=== PATIENT | female | born 1995 ===

== ENCOUNTER 2016-03-11 09:49 | Emergency (ER) | payer BC ==
[2016-03-11 11:30] VITALS: BP 132/79
--- NOTE | 2016-03-11 11:46 | UC ---
Throat Pain/Nasal Natalio HPI - HPI Summary HPI Summary: FEVER X 1 DAY , + CHILLS, COUGH, SORE THROAT, BODY ACHES - History of Current Complaint Chief Complaint: UCRespiratory Stated Complaint: ACHY,THROAT Time Seen by Provider: 03/11/16 11:23 Hx Obtained From: Patient Hx Last Menstrual Period: 01/30/16, TAKES BCP THAT GIVES HER A PERIOD [id number] Onset/Duration: Sudden Onset, Lasting Days - 1, Still Present Severity: Severe Cough: Nonproductive Associated Signs & Symptoms: Positive: Fever. Negative: Sinus Discomfort, Nasal Discharge, Vomiting - Allergies/Home Medications Allergies/Adverse Reactions: Allergies Allergy/AdvReac Type Severity Reaction Status Date / Time No Known Allergies Allergy Verified 03/11/16 11:23 Home Medications: Home Medications Diphenhydramine-Phenylephrine- [Cold & Flu Relief Multi-S 12.5-5-325 mg/10Ml] 1 liq PO PRN 03/11/16 [History] PMH/Surg Hx/FS Hx/Imm Hx Previously Healthy: Yes Endocrine History Of: Denies: Diabetes Cardiovascular History Of: Denies: Hypertension, Pacemaker/ICD GI/ History Of: Denies: Renal Disease - Surgical History Surgical History: None - Family History Known Family History: Negative: Diabetes - Social History Alcohol Use: Rare Substance Use Type: None Smoking Status (MU): Never Smoked Tobacco - Immunization History Most Recent Influenza Vaccination: unsure Review of Systems Constitutional: Fever, Chills, Fatigue Skin: Negative Eyes: Negative ENT: Sore Throat Respiratory: Cough Cardiovascular: Negative Gastrointestinal: Negative All Other Systems Reviewed And Are Negative: Yes Physical Exam Triage Information Reviewed: Yes Appearance: Well-Appearing, No Pain Distress, Well-Nourished Vital Signs: Initial Vital Signs Temp 98.2 F 03/11/16 11:24 Pulse 106 03/11/16 11:24 Resp 20 03/11/16 11:24 BP 132/79 03/11/16 11:24 Pulse Ox 100 03/11/16 11:24 Vital Signs Reviewed: Yes Eye Exam: Normal Eyes: Positive: Conjunctiva Clear ENT: Positive: Normal ENT inspection, Hearing grossly normal, Pharynx normal, TMs normal. Negative: Pharyngeal erythema, Nasal congestion, Nasal drainage Neck: Positive: Supple, Nontender, No Lymphadenopathy Respiratory: Positive: Chest non-tender, Lungs clear, Normal breath sounds Cardiovascular: Positive: Tachycardia Abdominal Exam: Normal Bowel Sounds: Positive: Present Skin Exam: Normal Throat Pain/Nasal Course/Dx - Differential Dx/Diagnosis Provider Diagnoses: INFLUENZA Discharge - Discharge Plan Condition: Stable Disposition: HOME Patient Education Materials: Influenza (ED) Forms: *School Release Referrals: No Primary Care Phys,NOPCP [Primary Care Provider] - If Needed
== END 2016-03-11 11:54 | disposition home or self-care (01) ==
LOC: UCCORT 09:49
DX: J11.1 Influenza due to unidentified influenza virus with other respiratory manifestations (principal)
CPT/HCPCS: 87651; 99211; G0463

== ENCOUNTER 2016-11-15 09:02 | Emergency (ER) | payer BC ==
[2016-11-15] MEDS ORDERED: Ibuprofen TAB* 600 MG PO ONE (09:20)
[2016-11-15 09:39] VITALS: BP 130/91
--- NOTE | 2016-11-15 09:49 | RAD ---
HISTORY: Trauma to right orbit COMPARISONS: None TECHNIQUE: Multiple contiguous axial CT scans were obtained of the face without intravenous contrast, with coronal and sagittal multiplanar reformations. FINDINGS: BONES: There is no displaced fracture or dislocation. The orbital rim is intact. The zygomatic arch is intact. The pterygoid plates are intact. ORBITS: The globes are round. The optic nerves are symmetric. The extraocular musculature is normal. There is no post septal or intraconal inflammatory change. There is no retrobulbar hematoma. PARANASAL SINUSES: The nasal septum is deviated to the left with left-sided spurring. BRAIN AND SOFT TISSUE: Unremarkable. OTHER: None. IMPRESSION: NO FACIAL FRACTURE
--- NOTE | 2016-11-15 09:50 | UC ---
Skin Complaint HPI - HPI Summary HPI Summary: 21 YEAR OLD WITH EYE injury. She was playing feild hockey and a ball was deflected in to eye. unknown speed. no LOC. had laceration immediately. tenderness over the eye. - History of Current Complaint Chief Complaint: UCHeadInjury Stated Complaint: EYE INJURY Hx Obtained From: Patient Hx Last Menstrual Period: 10/14/16 Onset/Duration: Sudden Onset Skin Exposure Onset/Duration: Hours Ago Aggravating Factor(s): Nothing Alleviating Factor(s): Nothing - Allergy/Home Medications Allergies/Adverse Reactions: Allergies Allergy/AdvReac Type Severity Reaction Status Date / Time No Known Allergies Allergy Verified 11/15/16 09:07 Review of Systems Skin: Other - eye lac All Other Systems Reviewed And Are Negative: Yes PMH/Surg Hx/FS Hx/Imm Hx Previously Healthy: Yes - Surgical History Surgical History: None - Family History Known Family History: Negative: Diabetes - Social History Occupation: Student Lives: Dormitory/Roommates Alcohol Use: None Substance Use Type: None Smoking Status (MU): Never Smoked Tobacco - Immunization History Most Recent Influenza Vaccination: unsure Most Recent Tetanus Shot: WITHIN 5 YEARS. Physical Exam Triage Information Reviewed: Yes Appearance: Well-Appearing, Pain Distress - mild Vital Signs: Initial Vital Signs Temp 97.8 F 11/15/16 09:08 Pulse 91 11/15/16 09:08 Resp 16 11/15/16 09:08 BP 130/91 11/15/16 09:08 Pulse Ox 99 11/15/16 09:08 Vital Signs Reviewed: Yes Eye Exam: Normal ENT Exam: Normal Neck exam: Normal Respiratory Exam: Normal Cardiovascular Exam: Normal Musculoskeletal Exam: Normal Neurological Exam: Normal Psychological Exam: Normal Skin: Positive: Other - right eye with irregular laceration 3 CM Course/Dx - Course Course Of Treatment: NEG CT FOR FRACTURE. WITH THE COMPLICATION OF THE LACERATION WILL ADVISE TO GO TO [facility] ED FOR OPTHO EVAL -- NO OPTHO OR PLASTICS [employer] [facility] AT [facility] [place] AND ALSO THIS WAS TRAUMA RELATED . PATIENT AWARE AND AGREEABLE AND GO BY CAR FRIEND WILL DRIVE AND MOM WILL MEET PATIENT AT ED. note for sports asked at this time -- no sports for at least 4-5 days but will defer this to [facility] / follow up physicians and they are aware that note will usurp my note - Diagnoses Provider Diagnoses: COMPLICATED LACERATION RIGHT EYE LID Discharge - Discharge Plan Condition: Good Disposition: TRANS HIGHER LVL OF CARE FAC Patient Education Materials: Laceration (ED) Referrals: No Primary Care Phys,NOPCP [Primary Care Provider] - Additional Instructions: PLEASE GO DIRECTLY TO THE EMERGENCY ROOM AT [facility] EMERGENCY ROOM AT [address] [place] [address] IN [facility]
== END 2016-11-15 09:59 | disposition short-term general hospital (02) ==
LOC: UCCORT 09:02
DX: S01.111A Laceration without foreign body of right eyelid and periocular area, initial encounter (principal); W21.09XA Struck by other hit or thrown ball, initial encounter; Y93.65 Activity, lacrosse and field hockey; Y92.9 Unspecified place or not applicable
CPT/HCPCS: 70480; 99213; A9270-GY; G0463

== ENCOUNTER 2017-05-20 15:10 | Emergency (ER) | payer BC ==
[2017-05-20 15:55] VITALS: BP 121/66
--- NOTE | 2017-05-20 16:12 | UC ---
UC General HPI - HPI Summary HPI Summary: pt c/o fatigue with nausea, a few bouts of vomiting at the onset and some diarrhea a couple of times daily for 4 days. no hx travel, antibiotic use or fever. denies hx IBD. had mono years ago. - History of Current Complaint Hx Obtained From: Patient Hx Last Menstrual Period: 05/13/17 Pain Intensity: 0 Aggravating: diarrhea after meals Alleviating: nothing Associated Signs & Symptoms: Positive: Diarrhea, Nausea, Vomiting. Negative: Abdominal Pain, Fever, Headache <Yanira Tompkins - Last Filed: 05/20/17 16:06> <Gini Cornell - Last Filed: 05/20/17 17:46> - History of Current Complaint Chief Complaint: UCGI Stated Complaint: NAUSEA/DIARRHEA Time Seen by Provider: 05/20/17 16:05 - Allergy/Home Medications Allergies/Adverse Reactions: Allergies Allergy/AdvReac Type Severity Reaction Status Date / Time No Known Allergies Allergy Verified 05/20/17 15:53 PMH/Surg Hx/FS Hx/Imm Hx Previously Healthy: Yes - Surgical History Surgical History: None - Family History Known Family History: Negative: Diabetes - Social History Occupation: Student Lives: Dormitory/Roommates Alcohol Use: Rare Substance Use Type: None Smoking Status (MU): Never Smoked Tobacco - Immunization History Most Recent Influenza Vaccination: unsure Most Recent Tetanus Shot: WITHIN 5 YEARS. Vaccination Up to Date: Yes <Yanira Tompkins - Last Filed: 05/20/17 16:06> Review of Systems Constitutional: Fatigue Skin: Negative Eyes: Negative ENT: Negative Respiratory: Negative Cardiovascular: Negative Gastrointestinal: Vomiting, Diarrhea, Nausea Genitourinary: Negative Motor: Negative Neurovascular: Negative Musculoskeletal: Negative Neurological: Negative Psychological: Negative Is Patient Immunocompromised?: No All Other Systems Reviewed And Are Negative: Yes <Yanira Tompkins - Last Filed: 05/20/17 16:06> Physical Exam Triage Information Reviewed: Yes Appearance: Well-Appearing Vital Signs: Initial Vital Signs Temp 97.7 F 05/20/17 15:49 Pulse 89 05/20/17 15:49 Resp 16 05/20/17 15:49 BP 121/66 05/20/17 15:49 Pulse Ox 100 05/20/17 15:49 Vital Signs Reviewed: Yes Eyes: Positive: Conjunctiva Clear ENT: Positive: Pharynx normal, TMs normal. Negative: Nasal congestion, Nasal drainage Neck: Positive: Supple, Nontender, No Lymphadenopathy Respiratory: Positive: Lungs clear, Normal breath sounds Cardiovascular: Positive: RRR, No Murmur Abdomen Description: Positive: Nontender, No Organomegaly, Soft. Negative: Distended, Guarding Bowel Sounds: Positive: Present Musculoskeletal: Positive: ROM Intact Neurological: Positive: Alert Psychological: Positive: Age Appropriate Behavior Skin Exam: Normal <Yanira Tompkins - Last Filed: 05/20/17 16:06> Vital Signs: Initial Vital Signs Temp 97.7 F 05/20/17 15:49 Pulse 89 05/20/17 15:49 Resp 16 05/20/17 15:49 BP 121/66 05/20/17 15:49 Pulse Ox 100 05/20/17 15:49 <Gini Cornell - Last Filed: 05/20/17 17:46> Course/Dx - Course Course Of Treatment: no fx or infection. will splint and refer to orthopedics - Differential Dx - Multi-Symptom Provider Diagnoses: Sprain R wrist <Yanira Tompkins - Last Filed: 05/20/17 16:06> Discharge - Sign-Out/Discharge Documenting (check all that apply): Discharge - Billing Disposition and Condition Condition: STABLE Disposition: HOME <Yanira Tompkins - Last Filed: 05/20/17 16:06> - Billing Disposition and Condition Condition: STABLE Disposition: HOME <Gini Cornell - Last Filed: 05/20/17 17:46> - Discharge Plan Condition: Stable Disposition: HOME Patient Education Materials: Acute Nausea and Vomiting (ED), Acute Diarrhea (ED ), Fatigue (ED) Forms: *School Release Referrals: No Primary Care Phys,NOPCP [Primary Care Provider] - Additional Instructions: FOLLOW UP WITH THE [facility] TOMORROW. Attestation Statement User Type: Provider - I was available for consult. This patient was seen by the KEREN. The patient was not presented to, seen by, or examined by me. -Jefferson <Gini Cornell - Last Filed: 05/20/17 17:46>
--- NOTE | 2017-05-20 17:07 | UC ---
UC General HPI - HPI Summary HPI Summary: pt c/o fatigue with nausea, a few bouts of vomiting at the onset and some diarrhea a couple of times daily for 4 days. no hx travel, antibiotic use or fever. denies hx IBD. had mono years ago. - History of Current Complaint Hx Obtained From: Patient Hx Last Menstrual Period: 05/13/17 Pain Intensity: 0 Aggravating: diarrhea after meals Alleviating: nothing Associated Signs & Symptoms: Positive: Diarrhea, Nausea, Vomiting. Negative: Abdominal Pain, Fever, Headache <Yanira Tompkins - Last Filed: 05/20/17 17:02> <Gini Cornell - Last Filed: 05/20/17 17:45> - History of Current Complaint Chief Complaint: UCGI Stated Complaint: NAUSEA/DIARRHEA Time Seen by Provider: 05/20/17 16:05 - Allergy/Home Medications Allergies/Adverse Reactions: Allergies Allergy/AdvReac Type Severity Reaction Status Date / Time No Known Allergies Allergy Verified 05/20/17 15:53 PMH/Surg Hx/FS Hx/Imm Hx Previously Healthy: Yes - Surgical History Surgical History: None - Family History Known Family History: Negative: Diabetes - Social History Occupation: Student Lives: Dormitory/Roommates Alcohol Use: Rare Substance Use Type: None Smoking Status (MU): Never Smoked Tobacco - Immunization History Most Recent Influenza Vaccination: unsure Most Recent Tetanus Shot: WITHIN 5 YEARS. Vaccination Up to Date: Yes <Yanira Tompkins - Last Filed: 05/20/17 17:02> Review of Systems Constitutional: Fatigue Skin: Negative Eyes: Negative ENT: Negative Respiratory: Negative Cardiovascular: Negative Gastrointestinal: Vomiting, Diarrhea, Nausea Genitourinary: Negative Motor: Negative Neurovascular: Negative Musculoskeletal: Negative Neurological: Negative Psychological: Negative All Other Systems Reviewed And Are Negative: Yes <Yanira Tompkins - Last Filed: 05/20/17 17:02> Physical Exam Triage Information Reviewed: Yes Appearance: Well-Appearing Vital Signs: Initial Vital Signs Temp 97.7 F 05/20/17 15:49 Pulse 89 05/20/17 15:49 Resp 16 05/20/17 15:49 BP 121/66 05/20/17 15:49 Pulse Ox 100 05/20/17 15:49 Vital Signs Reviewed: Yes Eyes: Positive: Conjunctiva Clear ENT: Positive: Pharynx normal, TMs normal. Negative: Nasal congestion, Nasal drainage Neck: Positive: Supple, Nontender, No Lymphadenopathy Respiratory: Positive: Lungs clear, Normal breath sounds Cardiovascular: Positive: RRR, No Murmur Abdomen Description: Positive: Nontender, No Organomegaly, Soft. Negative: Distended, Guarding Bowel Sounds: Positive: Present Musculoskeletal: Positive: ROM Intact Neurological: Positive: Alert Psychological: Positive: Age Appropriate Behavior Skin Exam: Normal <Yanira Tompkins - Last Filed: 05/20/17 17:02> Vital Signs: Initial Vital Signs Temp 97.7 F 05/20/17 15:49 Pulse 89 05/20/17 15:49 Resp 16 05/20/17 15:49 BP 121/66 05/20/17 15:49 Pulse Ox 100 05/20/17 15:49 <Gini Cornell - Last Filed: 05/20/17 17:45> Diagnostics - Laboratory Diagnostic Studies Completed/Ordered: RAPID FLU IS NEGATIVE. <Yanira Tompkins - Last Filed: 05/20/17 17:02> Course/Dx - Course Course Of Treatment: non toxic, no concern for myxedema, no sign of gross anemia. pt has remote hx mono thus that is unlikely. no risk for c-diff or bacterial/parasite causes. no acute abdomen. refer refer back to [facility] for f/u - Differential Dx - Multi-Symptom Provider Diagnoses: Fatigue, vomiting, diarrhea <Yanira Tompkins - Last Filed: 05/20/17 17:02> Discharge - Sign-Out/Discharge Documenting (check all that apply): Discharge - Billing Disposition and Condition Condition: STABLE Disposition: HOME <Yanira Tompkins - Last Filed: 05/20/17 17:02> - Billing Disposition and Condition Condition: STABLE Disposition: HOME <Gini Cornell - Last Filed: 05/20/17 17:45> - Discharge Plan Condition: Stable Disposition: HOME Patient Education Materials: Acute Nausea and Vomiting (ED), Acute Diarrhea (ED ), Fatigue (ED) Forms: *School Release Referrals: No Primary Care Phys,NOPCP [Primary Care Provider] - Additional Instructions: FOLLOW UP WITH THE [facility] TOMORROW. Attestation Statement User Type: Provider - I was available for consult. This patient was seen by the KEREN. The patient was not presented to, seen by, or examined by me. -Jefferson <Gini Cornell - Last Filed: 05/20/17 17:45>
== END 2017-05-20 17:16 | disposition home or self-care (01) ==
LOC: UCCORT 15:10
DX: R53.83 Other fatigue (principal); R11.10 Vomiting, unspecified; R19.7 Diarrhea, unspecified
CPT/HCPCS: 87502; 99211; G0463